=== PATIENT | male | born 1995 | race African-American/Black ===

== ENCOUNTER 2017-09-03 17:47 | Emergency (ER) | payer SELFPAY ==
[2017-09-03 17:49] VITALS: BP 120/75; PULSE 80; RESP 16; TEMP 97.8; O2SAT 96
[2017-09-03 18:24] LABS: BACTERIA, URINE FEW /hpf; BILIRUBIN, URINE NEG (NEG); BLOOD, URINE SMALL (NEG); GLUCOSE,URINE NEG (NEG); KETONE, URINE NEG (NEG); MUCUS URINE FEW /lpf (OCC); NITRITE,URINE NEG (NEG); URINE COLOR YELLOW (YELLW/STRAW); URINE LEUKOCYTE ESTERASE LARGE (NEG)
--- NOTE | 2017-09-03 18:50 | PD ---
HPI Chief Complaint: Complaint Time Seen by Provider: 18:44 Travel History International Travel<30 days: No Contact w/Intl Traveler<30days: No Traveled to known affect area: No History of Present Illness HPI Patient comes in complaining of possible UTI. Patient states he noticed some yellow discharge from his penis that began today. Denies any dysuria, testicular pain, abdominal pain, back pain, fevers, previous episodes like this. Patient states that he is sexually active with more than one person and believes he got infected when he was not wearing a condom. Patient denies doing anything for this prior to coming to the emergency department. Denies anything making symptoms better or worse. Denies any pain with this or radiation of pain. PFSH Past Medical History Medical History: Denies Significant Hx Social History Alcohol Use: No Tobacco Use: No Substance Use: Yes (marijuana) Allergies-Medications (Allergen,Severity, Reaction): Coded Allergies: No Known Allergies (Unverified , 09/03/17) Review of Systems Except as stated in HPI: all other systems reviewed are Neg Physical Exam Narrative GENERAL: Well-developed, well nourished, in no acute distress, and non-ill appearing. SKIN: Focused skin assessment warm and dry. HEAD: Atraumatic. Normocephalic. EYES: Pupils equal and round. EOMI. No scleral icterus. No injection or drainage. ENT: No nasal bleeding or discharge. Mucous membranes pink and moist. NECK: Trachea midline. Supple. No nuclear rigidity. RESPIRATORY: No accessory muscle use. No respiratory distress. GASTROINTESTINAL: Abdomen soft, non-tender, nondistended, and no guarding. Hepatic and splenic margins not palpable. No pulsatile mass. MUSCULOSKELETAL: No obvious deformities. No clubbing. No cyanosis. No edema. Full range of motion. NEUROLOGICAL: Awake and alert. No obvious cranial nerve deficits. Motor grossly within normal limits. Normal speech. PSYCHIATRIC: Appropriate mood and affect; insight and judgment normal. Data Data Last Documented VS Vital Signs Date Time Temp Pulse Resp B/P (MAP) Pulse Ox O2 Delivery O2 Flow Rate FiO2 09/03/17 19:35 09/03/17 17:49 97.8 80 16 96 Room Air Orders Orders Urinalysis - C+S If Indicated (09/03/17 17:58) Gc And Chlamydia Pcr (09/03/17 17:58) Urine Culture (09/03/17 18:00) Azithromycin Powd Pack (Zithromax Powd P (09/03/17 19:00) Metronidazole (Flagyl) (09/03/17 19:00) Ceftriaxone Inj (Rocephin Inj) (09/03/17 19:00) Lidocaine Pf 1% Inj (Xylocaine-Mpf 1% In (09/03/17 19:00) Ed Discharge Order (09/03/17 18:51) Labs Laboratory Tests Test 09/03/17 18:00 Urine Color YELLOW Urine Turbidity HAZY Urine pH 6.0 Urine Specific Elmo 1.028 Urine Protein 30 mg/dL Urine Glucose (UA) NEG mg/dL Urine Ketones NEG mg/dL Urine Occult Blood SMALL Urine Nitrite NEG Urine Bilirubin NEG Urine Urobilinogen 4.0 MG/DL Urine Leukocyte Esterase LARGE Urine RBC 16 /hpf Urine WBC /hpf Urine Bacteria FEW /hpf Urine Mucus FEW /lpf Microscopic Urinalysis Comment CULTURE INDICATED MDM Medical Decision Making Medical Screen Exam Complete: Yes Emergency Medical Condition: Yes Differential Diagnosis UTI, STD, penile discharge, dysuria Narrative Course Patient in no obvious distress upon re-evaluation. All pertinent laboratory result(s) discussed with patient with the exception of gonorrhea and chlamydia that are currently pending. Any questions/concerns in reference to patient diagnosis/condition discussed and clarified prior to patient's discharge. Reinforced sheer importance of close follow up with patient's primary physician or primary care clinic and/or health Department. Instructed patient to return to ED immediately, if symptoms return/worsen. Patient showed understanding of above instructions. Further instructions and recommendations were detailed in discharge paperwork. Patient ambulated without difficulty out of ED at discharge. Diagnosis Primary Impression: Penile discharge Additional Impression: Possible exposure to STD Referrals: [facility] Dept. Patient Instructions: General Instructions, Sexually Transmitted Diseases (DC) Additional Instructions: Follow-up with your primary care physician and/or health Department for additional STD testing. Notify all sexual partners have them tested and treated. Do not have intercourse until all sexual partners tested and treated. Practice safe sex to prevent further STDs and/or unwanted pregnancies. If you would like a copy of your gonorrhea and chlamydia results bring a photo ID to medical records in 24-48 hours to get a copy. Return to the emergency department if symptoms get worse. Disposition: 01 DISCHARGE HOME Condition: Stable Landon Rangel D PA Sep 03, 2017 18:50
[2017-09-03] MEDS ORDERED: metroNIDAZOLE 500 MG TAB PO ONE (19:00)
[2017-09-03] MEDS ORDERED: LIDOCAINE HCL 1% PF 30 ML VIAL XX ONE (19:00)
[2017-09-03] MEDS ORDERED: AZITHROMYCIN PWD FOR SUSP 1 GM PACKET PO ONE (19:00)
== END 2017-09-03 19:40 | disposition home or self-care (01) ==
LOC: NEPK 17:47
DX: R36.9 Urethral discharge, unspecified (principal)
CPT/HCPCS: 81001; 87086; 87491; 87591; 96372; 99284; J0696